=== PATIENT | male | born 1945 | race Caucasian/White ===

== ENCOUNTER 2017-03-10 21:45 | Emergency (ER) | payer MEDICARE ==
[2017-03-10 18:19] LABS: BASOPHILS 0.5 %; BASOPHILS ABSOLUTE 0.06 10/3/uL (0.0-0.16); EOSINOPHILS 3.5 %; EOSINOPHILS ABSOLUTE 0.43 10/3/uL (0.0-0.53); ER CBC TAT 0 Hrs 05 Mins; HEMATOCRIT 43.8 % (40.0-51.0); HEMOGLOBIN 15.1 g/dL (13.6-17.8); IMMATURE GRANULOCYTES 2.2 %; IMMATURE GRANULOCYTES ABSOLUTE 0.27 10/3/uL (0.0-0.11); LYMPHOCYTES 10.4 %; LYMPHOCYTES ABSOLUTE 1.27 10/3/uL (0.67-4.30); MEAN CORPUS HGB CONC 34.5 g/dL (32.0-36.0); MEAN CORPUSCULAR HEMOGLOB 33.7 pg (26.0-34.0); MEAN CORPUSCULAR VOLUME 97.8 fL (80-100); MEAN PLATELET VOLUME 10.2 fL (9.2-13.0); MONOCYTES 9.3 %; MONOCYTES ABSOLUTE 1.13 10/3/uL (0.21-1.20); NEUTROPHILS 74.1 %; NEUTROPHILS ABSOLUTE 9.01 10/3/uL (2.02-8.40); PLATELET COUNT 269 10/3/uL (150-400); RBC DISTRIBUTION WIDTH 12.5 % (12.0-16.0); RED CELL COUNT 4.48 10/6/uL (4.7-6.1); WHITE BLOOD CELLS 12.2 10/3/uL (4.5-10.5)
[2017-03-10 18:20] LABS: MANUAL DIFF NO %
[2017-03-10 18:35] LABS: A/G RATIO 0.7 (0.7-1.9); ALBUMIN 2.7 G/DL (3.5-5.0); ALKALINE PHOSPHATASE 117 U/L (45-117); BUN (BLOOD UREA NITROGEN) 23 MG/DL (6-23); CALCIUM, SERUM 9.1 MG/DL (8.5-10.4); CHLORIDE, SERUM 103 MMOL/L (96-112); CO2 (CARBON DIOXIDE) 30 MMOL/L (24-34); CREATININE 1.04 MG/DL (0.70-1.30); GFR AFRICAN AMERICAN 83 ML/MIN (>=60); GFR NON AFRICAN AMERICAN 72 ML/MIN (>=60); GLOBULIN 4.1 G/DL (2.5-4.1); GLUCOSE, SERUM 109 MG/DL (60-99); POTASSIUM, SERUM 4.1 MMOL/L (3.5-5.3); SGOT(AST) 27 U/L (5-40); SGPT(ALT) 55 U/L (5-65); SODIUM, SERUM 139 MMOL/L (135-148); TOTAL BILIRUBIN 0.3 MG/DL (0-1.2); TOTAL PROTEIN 6.8 G/DL (6.0-8.5)
[2017-03-10 18:43] LABS: BLASTS 1 % (0); EOSINOPHILS 6 %; EOSINOPHILS ABSOLUTE (CALC) 0.73 10/3/uL (0.0-0.53); ER DIFF TAT 0 Hrs 29 Mins; IMMATURE GRANS ABSOLUTE (CALC) 0.12 10/3/uL (0.0-0.11); LYMPHOCYTES 9 %; METAMYELOCYTES 1 %; MONOCYTES 3 %; MONOCYTES ABSOLUTE (CALC) 0.37 10/3/uL (0.21-1.20); NEUTROPHILS ABSOLUTE (CALC) 9.76 10/3/uL (2.02-8.40); SEGMENTED NEUTROPHIL (0) 80 %; TOTAL NUCLEATED CELLS 100
[2017-03-10 18:46] LABS: PLATELET ESTIMATE ADQ (ADEQUATE)
[2017-03-10 18:50] LABS: HELMET CELLS FEW (3-10/OIF); POLYCHROMASIA 1+ (2-5/OIF) (0-1/OIF); TARGET CELLS FEW (3-10/OIF) (0-1/OIF)
[2017-04-24] MEDS ORDERED: ROXICODONE15 MG PO (16:41)
[2017-04-24] MEDS ORDERED: AUG875 PO (16:42)
[2017-04-24] MEDS ORDERED: ZOL100 PO (16:42)
[2017-05-26] MEDS ORDERED: NEUR300 PO (19:54)
[2017-05-26] MEDS ORDERED: DEX4 PO (19:55)
[2017-05-26] MEDS ORDERED: COMP10B PO (19:55)
[2017-05-26] MEDS ORDERED: CHEMOTHERAPY IV (19:56)
[2017-06-10] MEDS ORDERED: CONSTULOSE PO (12:25)
[2017-06-10] MEDS ORDERED: INSNOVR SC (12:29)
[2017-06-26] MEDS ORDERED: REM15 PO (14:43)
[2017-06-26] MEDS ORDERED: POTASSIUM OTC PO (14:45)
[2017-07-16] MEDS ORDERED: LOM PO (03:24)
[2017-07-16] MEDS ORDERED: TRAZ50 PO (03:25)
[2017-07-16] MEDS ORDERED: DURICEF PO (03:25)
[2017-07-16] MEDS ORDERED: KLOR-CON M1010 MEQ PO (03:26)
[2017-07-16] MEDS ORDERED: NEUR300 PO (03:27)
[2017-07-16] MEDS ORDERED: ZOL100 PO (03:27)
[2017-07-16] MEDS ORDERED: PROTONIX PO (03:27)
[2017-07-16] MEDS ORDERED: ATV.5 PO (03:27)
[2017-07-16] MEDS ORDERED: ROXICODONE15 MG PO (03:28)
[2017-07-16] MEDS ORDERED: INSNOVR (03:28)
[2017-07-16] MEDS ORDERED: COMP10B PO (03:28)
[2017-07-20] MEDS ORDERED: VANCOCIN HCL125 MG PO (13:14)
[2017-07-20] MEDS ORDERED: FLAG500TAB PO (13:15)
== END 2017-03-10 22:24 | disposition home or self-care (01) ==
LOC: ER 21:45
PROVIDERS: Emergency Medicine
DX: K94.22 Gastrostomy infection (principal); Z87.891 Personal history of nicotine dependence; Z85.01 Personal history of malignant neoplasm of esophagus
CPT/HCPCS: 80053; 83690; 85025; 87040; 87070; 87077; 87186; 87205; 96374; 99283

== ENCOUNTER 2017-03-24 21:03 | Inpatient (IN) | payer MEDICARE ==
--- NOTE | ~2017-03-24 | IDS ---
Interim Discharge Summary [facility] [address] [place]. [address] NAME: TARI GALLEGO : 47 STATUS : ADM IN [facility]#: [id number] AGE: 72 ADM/REG DATE : 03/24/17 MR#: [id number] REPORT SERV DATE: 04/01/17 DICTATED BY: DANIEL BOWERS II DATE: 04/01/17 REPORT STATUS : Draft TRANSCRIBED BY: MODL DATE: 04/01/17 ADMISSION DATE: 03/24/2017 DISCHARGE DATE: DATE OF INTERIM: 04/01/2017 INTERIM DIAGNOSES: 1. Abdominal wall abscess, status post drain. 2. Esophageal cancer, currently undergoing XRT. 3. Fever. 4. Abdominal pain secondary to above. 5. Urinary retention. Resolved. 6. Acute hypoxic respiratory failure, in the setting of persistent small right pleural effusion and atelectasis. 7. Left upper extremity edema, ultrasound pending. 8. J-tube removal on total parent nutrition. CONSULTS: Dr. Coburn with Surgery. PROCEDURE: CT-guided drainage of abdominal wall abscess, status post bulb drain placement. BRIEF HISTORY OF PRESENT ILLNESS: The patient is a 72-year-old male with the above history who presented to [facility] due to abdominal wall infection, cellulitis, and found to have abdominal abscess. For detailed history and physical examination, please see Dr. So's note from 03/24/2017. HOSPITAL COURSE: On admission, the patient had an elevated procalcitonin of 0.98, and CT abdomen and pelvis showed an extensive fluid and gas enlarging left abdominal wall abscess. The abscess appeared to be around the point where the catheter enters the abdominal wall which was extensive throughout the musculature though no intraperitoneal abscess was noted. The patient was started on vancomycin and Zosyn initially and cultures returned with Serratia marcescens sensitive to Levaquin, so he was switched to IV Levaquin. The patient continues to have drain output and is on TPN since his NG tube had to be removed. Overall, he has been fairly stable and repeat abscessogram on the 03/27/2017 showed persistent abscess though slightly improved. Currently surgery is pending repeat abscessogram reportedly planned tomorrow 523. He otherwise has had an episode of urinary retention and a Crockett catheter was placed due to the penile edema. This has improved and his Crockett was removed and now has had no further retention. He has been hypoxic throughout this hospitalization. Chest x-ray, mainly showing bilateral pleural effusions, though most recent chest x-ray showed resolution of the left and persistent right with atelectasis. A fever was noted yesterday of 101.1. So he was re-cultured. UA was negative. Blood cultures have been negative so far and no new infiltrate was noted on the chest x-ray. He has not had any further fevers though may be still related to abscess. He also was noted to have some left upper extremity edema which started yesterday so we will check UA and ultrasound of left upper extremity. He does have a DVT in the arm, there may be reason to check a CTA given his hypoxia is new and is fusions are fairly minimal, though he is not Interim Discharge Summary [address] [address] NAME: TARI GALLEGO : 46 STATUS : ADM IN [facility]#: [id number] AGE: 72 ADM/REG DATE : 03/24/17 MR#: [id number] REPORT SERV DATE: 04/01/17 DICTATED BY: DANIEL BOWERS II DATE: 04/01/17 REPORT STATUS : Draft TRANSCRIBED BY: MOY DATE: 04/01/17 tachycardic. Regarding disposition, Case Management is working on home health and home TPN as there does not appear to be any indication surgery is going to replace the tube this admission. Family has arranged 24-hour care for the patient. He remains fairly debilitated. Note, Dr. John will take over the patient's care starting tomorrow. KARYN/MOY Daniel Bowers II, MD / [id number] CC: MD PETER Mullins II, ROBERT ADAM
--- NOTE | ~2017-03-24 | DS ---
Discharge Summary [facility] [address] [place]. [address] NAME: TARI GALLEGO : 47 STATUS : DIS IN PAT#: [id number] AGE: 72 ADM/REG DATE : 03/24/17 MR#: [id number] REPORT SERV DATE: 04/08/17 DICTATED BY: LEYLA LIEBERMAN DATE: 04/08/17 REPORT STATUS : Draft TRANSCRIBED BY: MODL DATE: 04/08/17 ADMISSION DATE: 03/24/2017 DISCHARGE DATE: 04/08/2017 DISCHARGE DIAGNOSES: 1. Abdominal wall abscess, status post drain. 2. Abdominal pain due to abdominal wall abscess. 3. Esophageal cancer. 4. Severe protein malnutrition. 5. Hypoxic respiratory failure, resolved. IMAGIN. CT of abdomen and pelvis on 03/25/2017, impression, extensive fluid and gas enlarging the left abdominal wall musculature, may be related to gas-forming infection. Focal pocket of fluid and gas around the point where the catheter enters the abdominal wall. Gas and edema are more extensive throughout the musculature. No intraperitoneal abscess or other acute intraperitoneal finding. 2. CT of soft tissue with catheter insertion on 03/25/2017, impression, under CT guidance, an 8-Djiboutian catheter has been placed into the area of fluid and air collection in the mid abdomen adjacent to a newly removed jejunal feeding tube. 3. Vascular lab catheter injection on 03/26/2017, impression, abscessogram demonstrates drain in good position. Abscess cavity decreased in size. There is no contrast . 4. CT of abdomen and pelvis on 03/27/2017, impression, there is persistent abdominal and soft tissue swelling present. The drain, however, appears to be in good position. 5. Chest x-ray on 03/31/2017, impression, persistent small right pleural effusion and probable segmental atelectasis of the right lung base. Resolution of left pleural effusion compared to recent CT of the abdomen. No acute pulmonary disease. 6. CT on 04/02/2017, impression, existing catheter in good communication with entire abscess over the abdominal wall. No additional catheters were placed. 7. Venous Doppler ultrasound on 04/02/2017, no evidence of deep vein thrombus in the left upper extremity. 8. Abscessogram on 04/05/2017, impression, upsizing abscessogram demonstrate persistent abscess cavity. This was drained until completely decompressed with Betadine and saline until clear. A 12-Djiboutian drain placed. Over 300 mL of purulent material was removed. LABORATORY DATA: Sodium 137, potassium is 4.3, chloride is 104, CO2 is 24, BUN is 23, creatinine 0.56, 145, calcium 8.4, magnesium is 2.0, phosphorus is 3.2. CONSULTATION: Surgery, Dr. Coburn, on 03/24/2017. COURSE OF HOSPITAL STAY: Please refer to history and physical dictated on 03/24/2017 for complete admission details as well as consultation note by Dr. Coburn. This patient is a 72-year-old male, who presented to [facility] Emergency Room with Discharge Summary [address] [address] NAME: TARI GALLEGO : 47 STATUS : DIS IN [facility]#: [id number] AGE: 72 ADM/REG DATE : 03/24/17 MR#: [id number] REPORT SERV DATE: 04/08/17 DICTATED BY: LEYLA LIEBERMAN DATE: 04/08/17 REPORT STATUS : Draft TRANSCRIBED BY: MOY DATE: 04/08/17 abdominal wall infection, cellulitis, and found to have abdominal abscess. Upon admission, the patient was evaluated with procalcitonin of 0.98. CT imaging was obtained, which is noted above, did show extensive fluid and gas enlarging the left abdominal wall abscess. Surgery was consulted to evaluate the patient. The patient was initially started on vancomycin and Zosyn. This was changed to Levaquin. The patient did complete 14 days of antibiotic. The patient continued to have drainage. Upon discharge, the patient will have drain remained in place. A repeat abscessogram will be obtained on 04/10/2017 for re- evaluation. The patient was started on TPN during his hospital stay. This will continue upon discharge. Home Health has been arranged for the patient regarding supplies at home as well as home health and physical therapy as well as drain care. The patient does have a PICC line in place. Care will be provided upon discharge. The patient has been followed by Oncology during his stay. They will be following patient as outpatient. shipping/receiving manager has been involved with patient's care. The patient and family have agreed to the treatment plan. DISCHARGE MEDICATIONS: 1. Thorazine 10 mg one p.o. every 6 hours p.r.n. 2. Oxycodone 5 mg one p.o. every four hours p.r.n. for pain. 3. Oxycodone extended release 15 mg one p.o. every 12 hours. 4. Ativan 0.5 mg one p.o. three times daily. 5. Zofran 8 mg one p.o. every eight hours. 6. Protonix 40 mg one p.o. daily. 7. Flomax 0.4 mg one p.o. daily. 8. Zoloft 50 mg one p.o. daily. TIME SPENT: This discharge took greater than 30 minutes due to collaboration with patient and family as well as reviewing plan of care, home medications, arranging home health, supplies for TPN, physical therapy, and drain care. DICTATED BY: Leyla Lieberman NP [facility]/MODL Leyla Lieberman NP / [id number] CC: Charles Joyner ROBERT ADAM
--- NOTE | ~2017-03-24 | HP ---
History And Physical [address] [place]. [address] NAME: TARI GALLEGO : 47 STATUS : ADM IN [facility]#: [id number] AGE: 72 ADM/REG DATE : 03/24/17 MR#: [id number] REPORT SERV DATE: 03/25/17 DICTATED BY: MATEO BLACKMAN DATE: 03/24/17 REPORT STATUS : Draft TRANSCRIBED BY: MODL DATE: 03/24/17 DATE OF ADMISSION: 03/24/2017 CHIEF COMPLAINT: Abdominal wall infections and cellulitis. Direct admission/transfer from [facility] Emergency Room Department. HISTORY OF PRESENT ILLNESS: Obtained from the patient as well as the patient's family, present at bedside as well as the emergency room notes and reports from [facility] Emergency Room as well as past medical history medical records available to us, which were thoroughly reviewed. 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 The patient was seen and started on chemotherapy by Dr. Barrientos apparently just this past , three days ago. The patient had a PEG tube placement previously and it seems that he has been under treatment with antibiotic for cellulitis and redness around the J tube placement. Today, the patient has been very weak with increasing pain in the abdominal area therefore, he went to the emergency room department at [facility]. There, the patient was investigated, he was noticed to be rather hypotensive, and apparently, the patient has low blood pressure constitutionally that is in baseline and the investigation at the emergency room department revealed by CT scan that there is a large fluid and inflammation and gas throughout the anterolateral left hemiabdomen, surrounded by subcutaneous inflammatory stranding likely representing abdominal wall abscess and phlegmon associated with other malfunction of the percutaneous jejunostomy tube. Also, the above-mentioned CT scan suggested air-fluid level proximal to the distal esophageal mass with opacities in the right middle lobe, right lower lobe suspicious for aspiration. Therefore, the patient was referred to our Hospitalist Service as direct admission for further management of the above-mentioned findings around the jejunostomy tube by Dr. Coburn, surgeon; also per the fact that the oncology group, Dr. Barrientos, sees the patient here. Upon arrival on our hospital, the patient is comfortable, complaining of abdominal pain. He has been using ice chips at home and is still requesting them at these moment. PAST MEDICAL HISTORY: As above prior to the malignancy diagnosed not too long ago. The patient had a history of BPH and GERD. PAST SURGICAL HISTORY: Tonsillectomy, hemorrhoidectomy, and PEG jejunostomy tube replacement. ALLERGIES: NO KNOWN DRUG ALLERGIES. FAMILY HISTORY: Significant for hypertension. SOCIAL HISTORY: Recently moved to [place] to live with his daughter for close care. He used to work in a restaurant business. He has smoked for 48 years, one pack a day, quit two years ago. Denies alcohol abuse. Denies illicit or recreational drug abuse. REVIEW OF SYSTEMS: History And Physical [address] [address] NAME: TARI GALLEGO : 46 STATUS : ADM IN [facility]#: [id number] AGE: 72 ADM/REG DATE : 03/24/17 MR#: [id number] REPORT SERV DATE: 03/25/17 DICTATED BY: MATEO BLACKMAN DATE: 03/24/17 REPORT STATUS : Draft TRANSCRIBED BY: MOY DATE: 03/24/17 As per H and P, otherwise negative in all review of systems. Please note, the comprehensive review of system was obtained and pertinent positives were including in the H and P. The patient denies any fever or chills. Denies significant cough. Denies any diarrhea or any dysuria. ALLERGIES: NO KNOWN DRUG ALLERGIES. HOME MEDICATIONS: According to the list provided, the patient is supposed to take Flomax 0.4 mg p.o. at bedtime, hydrocodone 10/325 one p.o. q.4 hours p.r.n. pain, Ativan 0.5 mg p.o. t.i.d. p.r.n., Thorazine 10 mg p.o. q.6 hours p.r.n., Protonix 40 mg p.o. daily, Zofran 8 mg p.o. q.8 hours p.r.n. The patient has been on antibiotic until recently. He took the Keflex which was discontinued and presently taking Bactrim one tablet p.o. b.i.d. as well as a probiotic [id number]. PHYSICAL EXAMINATION: GENERAL: Pleasant, co-operant, in obvious mild distress due to pain, but overall pale and frail and ill-appearing. VITAL SIGNS: Upon arrival to the emergency room department showed blood pressure 71/57, pulse 89, respiratory rate 19, temperature 97.7, oxygen saturation 92% in room air. Upon arrival on our floor blood pressure 79/50, pulse 96, respiratory rate 18, temperature is 98.1, oxygen saturation 90% in room air up to 96% on 2 L by nasal cannula. HEENT: Pupils are equal, round, and reactive to light. Extraocular movements intact. Throat, mild erythema. No exudate. NECK: Supple. No JVD. No bruits. No thyromegaly. No lymph nodes. LUNGS: Bilateral air entry with bibasilar rales. Good airway movement. HEART: Positive S1, S2. Regular rate and rhythm. Positive soft mitral regurgitation murmur at the apex. No rub. No gallop. ABDOMEN: Positive bowel sounds. Distant with slight distention and diffuse tenderness especially on the left flank and around the insertion of the jejunostomy tube. Jejunostomy tube site with serous ? Purulent drainage. Positive guarding and mild rebound tenderness to palpation. Cellulitic changes around the jejunostomy tube extends to the right lower quadrant and on the left flank. EXTREMITIES: With decreased range of motion. Osteoarthritic changes. No clubbing. No cyanosis. No edema. NEUROLOGIC: Alert and oriented x3. Grossly nonfocal. Cranial nerves 2 through 12 grossly intact. Motor strength 5/5 symmetrical bilateral. Deep tendon reflexes 2/2 symmetrical bilateral. BACK: With decreased range of motion. No focal localized tenderness. No CVA tenderness. SKIN: No bruises. No rashes. No lacerations (besides the above-mentioned changes of the abdominal wall area). SIGNIFICANT LABORATORY DATA: No laboratory data available as the patient is a direct admission from outside hospital facility. EKG (personal reading), copy sent from [facility] showed normal sinus rhythm at 87 beats per minute. No acute ST elevation. White cell count 7.2, hemoglobin 14.9, platelet count 285. Sodium 133, potassium 4.7, chloride 102, bicarb 23, BUN 37, creatinine 1.3, glucose 124. Lactic acid 1.4, which is within normal limits. Calcium 8.5, which is within normal limits. Liver function tests within normal limits History And Physical [address] [place]. [address] NAME: TARI GALLEGO : 47 STATUS : ADM IN [facility]#: [id number] AGE: 72 ADM/REG DATE : 03/24/17 MR#: [id number] REPORT SERV DATE: 03/25/17 DICTATED BY: MATEO BLACKMAN DATE: 03/24/17 REPORT STATUS : Draft TRANSCRIBED BY: MODL DATE: 03/24/17 except albumin of 2.1, which is slightly decreased. INR 1.2 and PTT 27.5. Urinalysis showed trace LE, nitrates negative, trace bacteria, white cells 3 to 5. Blood cultures x2 were done at the [facility]. CT scan of the abdomen and pelvis without contrast by preliminary report from the emergency room showed "large fluid and inflammation and gas throughout the anterolateral left hemiabdomen surrounded by subcutaneous inflammatory stranding likely representing abdominal wall abscess/phlegmon associated with enterocutaneous fistula or other malfunction of the percutaneous a jejunostomy tube, known esophageal carcinoma, gastroesophageal junction, air-fluid level proximal to the distal esophageal mass, segmental opacity of right middle lobe or right lower lobe suspicious for aspiration." ASSESSMENT AND PLAN AND PROBLEM LIST: The patient is a pleasant 72-year-old man admitted as a direct admission/transfer for surgical consultation due to possible abdominal wall cellulitis, abscess, phlegmon, and immunocompromised status. IMPRESSION: 1. ID problem. a. Abdominal wall abscess, cellulitis, possible phlegmon with malfunction of the PEG tube. b. Aspiration pneumonitis (bilobar). c. Immunocompromised status. For all the above, patient has been started on IV vancomycin, IV Zosyn. We are going to repeat the blood cultures if any fever or distress develops. Obtain General Surgical consult, Dr. Coburn as requested. Strict n.p.o. status. Oxygen supplementation, bronchodilator therapy as needed. 2. Hypotension reportedly "constitutional." We are going to continue to monitor. Give adequate IV hydration and IV boluses as indicated. Low threshold for hemodynamic support if needed only the only for blood pressure management. 3. Benign prostatic hyperplasia by history. We are going to keep Flomax on hold for now. 4. Gastroesophageal reflux disease. We are going to use Protonix IV. 5. Hyperglycemia likely reactive. Continue to monitor. 6. 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 PROGNOSIS: Remain guarded for this moment. Discussed with the patient and the patient's family present at bedside. Questions were answered in full. Please note, the patient is a do not resuscitate at this moment as discussed with the patient and family. Please note, the patient does not have an established primary care provider at this moment/primary care. RF/MOY Mateo Blackman M.D. / [id number] History And Physical [address] [address] NAME: TARI GALLEGO : 47 STATUS : ADM IN [facility]#: [id number] AGE: 72 ADM/REG DATE : 03/24/17 MR#: [id number] REPORT SERV DATE: 03/25/17 DICTATED BY: MATEO BLACKMAN ION DATE: 03/24/17 REPORT STATUS : Draft TRANSCRIBED BY: MOY DATE: 03/24/17 CC: Charles Joyner M.D. Richard Hunter Jennings III, M.D. Jonathan T Whaley, MD
--- NOTE | ~2017-03-24 | CN ---
Consultation Report [id number] [facility] [place]. [address] NAME: TARI GALLEGO : 47 STATUS : ADM IN [facility]#: [id number] AGE: 72 ADM/REG DATE : 03/24/17 MR#: [id number] REPORT SERV DATE: 03/25/17 DICTATED BY: DK MCCAULEY III DATE: 03/25/17 REPORT STATUS : Draft TRANSCRIBED BY: MODL DATE: 03/25/17 CONSULTATION DATE OF CONSULTATION: 03/25/2017 REASON FOR CONSULT: 1. Infection of abdominal wall. 2. Malfunctioning jejunostomy feeding tube. HISTORY OF PRESENT ILLNESS: I am asked to see this 72-year-old male, emergently hospitalized for above reasons. The patient is recently diagnosed with distal esophageal cancer. The patient has severe dysphagia with near complete esophageal obstruction. The patient was initially evaluated in [place], [place]. He underwent placement of jejunal feeding tube. He has begun chemotherapy, which was started last week. The patient has had problems with the jejunal feeding tube for the last week or so. He has had intermittent amounts of bilious drainage around the tube. The tube has been replaced with larger tube on at least two occasions at [facility]. He continued to have drainage and then yesterday developed pain and severe erythema of the abdominal wall. He was seen in the emergency room on the night of admission at [facility] Emergency Room and then transferred here. The patient complains of anterior abdominal wall pain. He states that he feels ill. He has become progressively weak and developed progressive abdominal pain. There is noted be a large amount of copious bilious drainage around the tube. PAST MEDICAL HISTORY: Recently diagnosed esophageal cancer. The stage is unclear but apparently this was esophageal cancer with paraesophageal adenopathy. ALLERGIES: NONE. SOCIAL HISTORY: The patient has history of tobacco abuse. No history of alcohol use. FAMILY HISTORY: Positive for hypertension. REVIEW OF SYSTEMS: The patient's 14-point review of systems is otherwise unremarkable. MEDICATIONS: At home include Flomax, hydrocodone, Ativan, Thorazine, Protonix, Zofran, and Keflex. PHYSICAL EXAMINATION: GENERAL: A large, obese male, who appears uncomfortable. He is alert and oriented x3. Appears ill. Consultation Report [place] [id number] [facility] [place]. [address] NAME: TARI GALLEGO : 47 STATUS : ADM IN [facility]#: [id number] AGE: 72 ADM/REG DATE : 03/24/17 MR#: [id number] REPORT SERV DATE: 03/25/17 DICTATED BY: DK MCCAULEY III DATE: 03/25/17 REPORT STATUS : Draft TRANSCRIBED BY: MODJamil DATE: 03/25/17 VITAL SIGNS: Blood pressure 99/55, temperature 98.1, and pulse 83. It should be noted the patient is chronically hypotensive. His blood pressure when he was here electively for radiographic evaluation was 95/52 on 03/10/2017. HEENT: Unremarkable. NEUROLOGIC: Cranial nerves 2 through 12 are normal. LUNGS: Clear. CARDIAC: Normal. ABDOMEN: Slightly distended. He has a jejunal feeding tube along the left lateral abdominal wall. There was a large amount of bilious drainage from this. SKIN: The skin around the exit site is very erythematous and tender. There is no fluctuance noted. EXTREMITIES: Normal. LABORATORY DATA: CT scan of the abdomen and pelvis, which I reviewed shows a large fluid collection in the left anterior abdominal wall centered around the exit from the abdominal wall. This appeared to be consistent with subcutaneous abscess or fluid collection. There is no intraabdominal component to the fluid collection. No evidence for intraabdominal abscess. The feeding tube is in correct position in the jejunum. The patient's white blood cell count 5.4, hematocrit 43, BUN is 40. ASSESSMENT: A 72-year-old male with: 1. Severe cellulitis and probable abscess of anterior abdominal wall. This was related to leakage around his jejunal feeding tube. 2. Distal esophageal cancer. The patient currently undergoing chemotherapy. 3. Obesity. 4. Hypertension. PLAN: The feeding tube has been replaced on several occasions with a larger tube. I would recommend that this be removed to allow for adequate drainage of the area. I have also requested CT-directed drainage of the anterior abdominal wall fluid collection. The patient has been started on appropriate antibiotics. We will arrange for this to be done today. If it is not successful, then surgical drainage of the anterior abdominal wall fluid collection may be required in the operating room. At this time, the patient is hemodynamically stable, and I believe the CT-directed drainage would be appropriate way to proceed at this time, having surgical drainage for failure to respond to this intervention. This plan has been explained to the patient and his daughter. Their questions have been answered. They understand and agree to this as planned. ASHLEY/MOY Dk Mccauley III, M.D. Consultation Report [address] [address] NAME: TARI GALLEGO : 47 STATUS : ADM IN PAT#: [id number] AGE: 72 ADM/REG DATE : 03/24/17 MR#: [id number] REPORT SERV DATE: 03/25/17 DICTATED BY: DK MCCAULEY III DATE: 03/25/17 REPORT STATUS : Draft TRANSCRIBED BY: MOY DATE: 03/25/17 / [id number] CC: Reuben John M.D.
[2017-03-24] MEDS ORDERED: FLOMAX4 PO (22:30)
[2017-03-24] MEDS ORDERED: ATV.5 PO (22:31)
[2017-03-24] MEDS ORDERED: NORCO1 TAB PO (22:31)
[2017-03-24] MEDS ORDERED: CPZ10 PO (22:32)
[2017-03-24] MEDS ORDERED: PROTONIX PO (22:32)
[2017-03-24] MEDS ORDERED: ZOFRAN8 PO (22:33)
[2017-03-24 23:51] LABS: BASOPHILS 0.2 %; BASOPHILS ABSOLUTE 0.01 10/3/uL (0.0-0.16); EOSINOPHILS 2.6 %; EOSINOPHILS ABSOLUTE 0.14 10/3/uL (0.0-0.53); HEMOGLOBIN 14.8 g/dL (13.6-17.8); IMMATURE GRANULOCYTES 0.6 %; IMMATURE GRANULOCYTES ABSOLUTE 0.03 10/3/uL (0.0-0.11); LYMPHOCYTES 9.4 %; LYMPHOCYTES ABSOLUTE 0.51 10/3/uL (0.67-4.30); MEAN CORPUS HGB CONC 34.4 g/dL (32.0-36.0); MEAN CORPUSCULAR HEMOGLOB 33.4 pg (26.0-34.0); MEAN CORPUSCULAR VOLUME 97.1 fL (80-100); MEAN PLATELET VOLUME 10.1 fL (9.2-13.0); MONOCYTES 4.3 %; MONOCYTES ABSOLUTE 0.23 10/3/uL (0.21-1.20); NEUTROPHILS 82.9 %; NEUTROPHILS ABSOLUTE 4.48 10/3/uL (2.02-8.40); PLATELET COUNT 288 10/3/uL (150-400); RBC DISTRIBUTION WIDTH 12.6 % (12.0-16.0); RED CELL COUNT 4.43 10/6/uL (4.7-6.1)
[2017-03-24 23:55] LABS: MANUAL DIFF NO %; WHITE BLOOD CELLS 5.4 10/3/uL (4.5-10.5)
[2017-03-25 00:13] LABS: INTERNATIONAL NORMAL RATI 1.3 UNITS (-); PROTIME (NOT ORD) 15.6 SEC (12.0-14.5)
[2017-03-25 01:04] LABS: ASCORBIC ACID (UR NOT ORDER) 20 (NEG); BILIRUBIN, URINE NEGATIVE (NEG); KETONE, URINE NEGATIVE (NEG); LEUKOCYTE ESTERASE(NOT OR NEG (NEG); WBC (NOT ORDERED) (RFLEX) 2 (0-5)
[2017-03-25 04:56] LABS: BUN (BLOOD UREA NITROGEN) 40 MG/DL (6-23); CHLORIDE, SERUM 107 MMOL/L (96-112); CO2 (CARBON DIOXIDE) 25 MMOL/L (24-34); CREATININE 1.27 MG/DL (0.70-1.30); GFR AFRICAN AMERICAN 65 ML/MIN (>=60); GFR NON AFRICAN AMERICAN 56 ML/MIN (>=60); GLUCOSE, SERUM 106 MG/DL (60-99); PHOSPHORUS, SERUM 3.5 MG/DL (2.5-4.5); POTASSIUM, SERUM 5.4 MMOL/L (3.5-5.3); SGPT(ALT) 28 U/L (5-65); SODIUM, SERUM 137 MMOL/L (135-148)
[2017-03-25 04:57] LABS: A/G RATIO 0.5 (0.7-1.9); ALBUMIN 1.7 G/DL (3.5-5.0); ALKALINE PHOSPHATASE 77 U/L (45-117); GLOBULIN 3.3 G/DL (2.5-4.1); SGOT(AST) 24 U/L (5-40); TOTAL BILIRUBIN 0.9 MG/DL (0-1.2)
[2017-03-26 06:56] LABS: BASOPHILS 0 %; EOSINOPHILS 4.8 %; IMMATURE GRANULOCYTES 0.7 %; IMMATURE GRANULOCYTES ABSOLUTE 0.03 10/3/uL (0.0-0.11); LYMPHOCYTES 9.3 %; LYMPHOCYTES ABSOLUTE 0.39 10/3/uL (0.67-4.30); MEAN CORPUS HGB CONC 34.2 g/dL (32.0-36.0); MEAN CORPUSCULAR HEMOGLOB 33.3 pg (26.0-34.0); MEAN CORPUSCULAR VOLUME 97.4 fL (80-100); MONOCYTES ABSOLUTE 0.25 10/3/uL (0.21-1.20); NEUTROPHILS 79.2 %; NEUTROPHILS ABSOLUTE 3.33 10/3/uL (2.02-8.40); PLATELET COUNT 278 10/3/uL (150-400); RBC DISTRIBUTION WIDTH 12.6 % (12.0-16.0); WHITE BLOOD CELLS 4.2 10/3/uL (4.5-10.5)
[2017-03-26 07:02] LABS: HEMATOCRIT 29.5 % (40.0-51.0); HEMOGLOBIN 10.1 g/dL (13.6-17.8); MANUAL DIFF NO %; RED CELL COUNT 3.03 10/6/uL (4.7-6.1)
[2017-03-26 07:19] LABS: CHLORIDE, SERUM 108 MMOL/L (96-112); CO2 (CARBON DIOXIDE) 25 MMOL/L (24-34); DIRECT BILIRUBIN 0.6 MG/DL (0.0-0.4); INDIRECT BILIRUBIN(NOT ORDER) 0.5 MG/DL (0.1-0.9); SGOT(AST) 15 U/L (5-40); SGPT(ALT) 17 U/L (5-65); SODIUM, SERUM 140 MMOL/L (135-148); TOTAL BILIRUBIN 1.1 MG/DL (0-1.2); TOTAL PROTEIN 5.9 G/DL (6.0-8.5)
[2017-03-26 07:20] LABS: ALKALINE PHOSPHATASE 56 U/L (45-117); BUN (BLOOD UREA NITROGEN) 21 MG/DL (6-23); CALCIUM, SERUM 9.3 MG/DL (8.5-10.4); CREATININE 0.72 MG/DL (0.70-1.30); GFR AFRICAN AMERICAN 109 ML/MIN (>=60); GFR NON AFRICAN AMERICAN 94 ML/MIN (>=60); GLUCOSE, SERUM 81 MG/DL (60-99); PHOSPHORUS, SERUM 1.8 MG/DL (2.5-4.5); POTASSIUM, SERUM 4.1 MMOL/L (3.5-5.3)
[2017-03-26 12:20] LABS: PREALBUMIN 7.4 MG/DL (17.0-43.0); TRIGLYCERIDE 141 MG/DL (< 150)
[2017-03-26 12:21] LABS: A/G RATIO 1.4 (0.7-1.9); ALBUMIN 3.4 G/DL (3.5-5.0); GLOBULIN 2.5 G/DL (2.5-4.1)
[2017-03-27 06:32] LABS: HEMATOCRIT 30.5 % (40.0-51.0); HEMOGLOBIN 10.5 g/dL (13.6-17.8); MEAN CORPUS HGB CONC 34.4 g/dL (32.0-36.0); MEAN CORPUSCULAR HEMOGLOB 33.4 pg (26.0-34.0); MEAN CORPUSCULAR VOLUME 97.1 fL (80-100); MEAN PLATELET VOLUME 9.6 fL (9.2-13.0); PLATELET COUNT 301 10/3/uL (150-400); RBC DISTRIBUTION WIDTH 13.1 % (12.0-16.0); RED CELL COUNT 3.14 10/6/uL (4.7-6.1)
[2017-03-27 06:35] LABS: MANUAL DIFF YES %; WHITE BLOOD CELLS 6.3 10/3/uL (4.5-10.5)
[2017-03-27 06:50] LABS: BUN (BLOOD UREA NITROGEN) 20 MG/DL (6-23); CALCIUM, SERUM 9.3 MG/DL (8.5-10.4); CHLORIDE, SERUM 109 MMOL/L (96-112); CO2 (CARBON DIOXIDE) 26 MMOL/L (24-34); CREATININE 0.63 MG/DL (0.70-1.30); GFR AFRICAN AMERICAN 115 ML/MIN (>=60); GFR NON AFRICAN AMERICAN 99 ML/MIN (>=60); GLUCOSE, SERUM 110 MG/DL (60-99); PHOSPHORUS, SERUM 2.2 MG/DL (2.5-4.5); POTASSIUM, SERUM 3.7 MMOL/L (3.5-5.3); PREALBUMIN 5.6 MG/DL (17.0-43.0); SODIUM, SERUM 140 MMOL/L (135-148); TRIGLYCERIDE 173 MG/DL (< 150)
[2017-03-27 08:04] LABS: BAND NEUTROPHILS 23 %; EOSINOPHILS 2 %; EOSINOPHILS ABSOLUTE (CALC) 0.13 10/3/uL (0.0-0.53); LYMPHOCYTES 8 %; MONOCYTES 9 %; MONOCYTES ABSOLUTE (CALC) 0.57 10/3/uL (0.21-1.20); PLATELET ESTIMATE ADQ (ADEQUATE); SEGMENTED NEUTROPHIL (0) 58 %; TOTAL NUCLEATED CELLS 100
[2017-03-27 08:05] LABS: RBC MORPHOLOGY NORM (NORMAL)
[2017-03-28 04:50] LABS: HEMATOCRIT 34.1 % (40.0-51.0); HEMOGLOBIN 11.2 g/dL (13.6-17.8); MEAN CORPUS HGB CONC 32.8 g/dL (32.0-36.0); MEAN CORPUSCULAR HEMOGLOB 32.5 pg (26.0-34.0); MEAN CORPUSCULAR VOLUME 98.8 fL (80-100); MEAN PLATELET VOLUME 9.4 fL (9.2-13.0); PLATELET COUNT 297 10/3/uL (150-400); RED CELL COUNT 3.45 10/6/uL (4.7-6.1); WHITE BLOOD CELLS 7.7 10/3/uL (4.5-10.5)
[2017-03-28 04:51] LABS: MANUAL DIFF YES %
[2017-03-28 05:06] LABS: BUN (BLOOD UREA NITROGEN) 22 MG/DL (6-23); CALCIUM, SERUM 8.6 MG/DL (8.5-10.4); CHLORIDE, SERUM 107 MMOL/L (96-112); CO2 (CARBON DIOXIDE) 28 MMOL/L (24-34); CREATININE 0.68 MG/DL (0.70-1.30); GFR AFRICAN AMERICAN 111 ML/MIN (>=60); GFR NON AFRICAN AMERICAN 96 ML/MIN (>=60); PHOSPHORUS, SERUM 2.4 MG/DL (2.5-4.5); SODIUM, SERUM 140 MMOL/L (135-148)
[2017-03-28 05:07] LABS: GLUCOSE, SERUM 137 MG/DL (60-99)
[2017-03-28 07:04] LABS: BAND NEUTROPHILS 24 %; EOSINOPHILS 1 %; EOSINOPHILS ABSOLUTE (CALC) 0.08 10/3/uL (0.0-0.53); IMMATURE GRANS ABSOLUTE (CALC) 0.08 10/3/uL (0.0-0.11); LYMPHOCYTES 6 %; LYMPHOCYTES ABSOLUTE (CALC) 0.46 10/3/uL (0.67-4.30); METAMYELOCYTES 1 %; MONOCYTES 7 %; MONOCYTES ABSOLUTE (CALC) 0.54 10/3/uL (0.21-1.20); NEUTROPHILS ABSOLUTE (CALC) 6.55 10/3/uL (2.02-8.40); SEGMENTED NEUTROPHIL (0) 61 %; TOTAL NUCLEATED CELLS 100
[2017-03-28 07:05] LABS: PLATELET ESTIMATE ADQ (ADEQUATE); RBC MORPHOLOGY NORM (NORMAL); TOXIC GRANULATION 1+
[2017-03-29 05:24] LABS: HEMATOCRIT 32.5 % (40.0-51.0); HEMOGLOBIN 11.1 g/dL (13.6-17.8); MEAN CORPUS HGB CONC 34.2 g/dL (32.0-36.0); MEAN CORPUSCULAR HEMOGLOB 33.7 pg (26.0-34.0); MEAN CORPUSCULAR VOLUME 98.8 fL (80-100); MEAN PLATELET VOLUME 9.3 fL (9.2-13.0); PLATELET COUNT 294 10/3/uL (150-400); RED CELL COUNT 3.29 10/6/uL (4.7-6.1); WHITE BLOOD CELLS 7.5 10/3/uL (4.5-10.5)
[2017-03-29 05:27] LABS: MANUAL DIFF YES %
[2017-03-29 05:34] LABS: BUN (BLOOD UREA NITROGEN) 21 MG/DL (6-23); CALCIUM, SERUM 8.6 MG/DL (8.5-10.4); CHLORIDE, SERUM 105 MMOL/L (96-112); CO2 (CARBON DIOXIDE) 28 MMOL/L (24-34); CREATININE 0.69 MG/DL (0.70-1.30); GFR AFRICAN AMERICAN 111 ML/MIN (>=60); GFR NON AFRICAN AMERICAN 96 ML/MIN (>=60); GLUCOSE, SERUM 129 MG/DL (60-99); PHOSPHORUS, SERUM 2.4 MG/DL (2.5-4.5); POTASSIUM, SERUM 3.8 MMOL/L (3.5-5.3); SODIUM, SERUM 140 MMOL/L (135-148)
[2017-03-29 05:51] LABS: BAND NEUTROPHILS 12 %; EOSINOPHILS 2 %; EOSINOPHILS ABSOLUTE (CALC) 0.15 10/3/uL (0.0-0.53); IMMATURE GRANS ABSOLUTE (CALC) 0.53 10/3/uL (0.0-0.11); LYMPHOCYTES 2 %; LYMPHOCYTES ABSOLUTE (CALC) 0.15 10/3/uL (0.67-4.30); METAMYELOCYTES 7 %; MONOCYTES 6 %; MONOCYTES ABSOLUTE (CALC) 0.45 10/3/uL (0.21-1.20); NEUTROPHILS ABSOLUTE (CALC) 6.23 10/3/uL (2.02-8.40); PLATELET ESTIMATE ADQ (ADEQUATE); RBC MORPHOLOGY NORM (NORMAL); SEGMENTED NEUTROPHIL (0) 71 %; TOTAL NUCLEATED CELLS 100
[2017-03-30 06:03] LABS: HEMATOCRIT 31.9 % (40.0-51.0); HEMOGLOBIN 10.8 g/dL (13.6-17.8); MEAN CORPUS HGB CONC 33.9 g/dL (32.0-36.0); MEAN CORPUSCULAR VOLUME 97.6 fL (80-100); MEAN PLATELET VOLUME 9.5 fL (9.2-13.0); PLATELET COUNT 278 10/3/uL (150-400); RBC DISTRIBUTION WIDTH 13.2 % (12.0-16.0); RED CELL COUNT 3.27 10/6/uL (4.7-6.1); WHITE BLOOD CELLS 6.3 10/3/uL (4.5-10.5)
[2017-03-30 06:04] LABS: MANUAL DIFF YES %
[2017-03-30 06:13] LABS: BUN (BLOOD UREA NITROGEN) 20 MG/DL (6-23); CALCIUM, SERUM 8.4 MG/DL (8.5-10.4); CHLORIDE, SERUM 108 MMOL/L (96-112); CO2 (CARBON DIOXIDE) 29 MMOL/L (24-34); CREATININE 0.61 MG/DL (0.70-1.30); GFR AFRICAN AMERICAN 116 ML/MIN (>=60); GFR NON AFRICAN AMERICAN 100 ML/MIN (>=60); GLUCOSE, SERUM 142 MG/DL (60-99); PHOSPHORUS, SERUM 3.1 MG/DL (2.5-4.5); SODIUM, SERUM 142 MMOL/L (135-148); TRIGLYCERIDE 130 MG/DL (< 150)
[2017-03-30 06:28] LABS: PREALBUMIN 5.5 MG/DL (17.0-43.0)
[2017-03-30 06:29] LABS: BAND NEUTROPHILS 14 %; EOSINOPHILS 1 %; EOSINOPHILS ABSOLUTE (CALC) 0.06 10/3/uL (0.0-0.53); IMMATURE GRANS ABSOLUTE (CALC) 0.19 10/3/uL (0.0-0.11); LYMPHOCYTES 3 %; LYMPHOCYTES ABSOLUTE (CALC) 0.19 10/3/uL (0.67-4.30); METAMYELOCYTES 3 %; MONOCYTES 14 %; MONOCYTES ABSOLUTE (CALC) 0.88 10/3/uL (0.21-1.20); NEUTROPHILS ABSOLUTE (CALC) 4.98 10/3/uL (2.02-8.40); PLATELET ESTIMATE ADQ (ADEQUATE); RBC MORPHOLOGY NORM (NORMAL); SEGMENTED NEUTROPHIL (0) 65 %; TOTAL NUCLEATED CELLS 100
[2017-03-31 06:24] LABS: HEMATOCRIT 32.7 % (40.0-51.0); HEMOGLOBIN 10.9 g/dL (13.6-17.8); MEAN CORPUS HGB CONC 33.3 g/dL (32.0-36.0); MEAN CORPUSCULAR HEMOGLOB 32.6 pg (26.0-34.0); MEAN CORPUSCULAR VOLUME 97.9 fL (80-100); MEAN PLATELET VOLUME 9.5 fL (9.2-13.0); PLATELET COUNT 282 10/3/uL (150-400); RBC DISTRIBUTION WIDTH 13.4 % (12.0-16.0); RED CELL COUNT 3.34 10/6/uL (4.7-6.1); WHITE BLOOD CELLS 6.9 10/3/uL (4.5-10.5)
[2017-03-31 06:25] LABS: MANUAL DIFF YES %
[2017-03-31 06:30] LABS: BUN (BLOOD UREA NITROGEN) 22 MG/DL (6-23); CALCIUM, SERUM 8.7 MG/DL (8.5-10.4); CHLORIDE, SERUM 107 MMOL/L (96-112); CO2 (CARBON DIOXIDE) 26 MMOL/L (24-34); CREATININE 0.59 MG/DL (0.70-1.30); GFR AFRICAN AMERICAN 118 ML/MIN (>=60); GFR NON AFRICAN AMERICAN 102 ML/MIN (>=60); GLUCOSE, SERUM 126 MG/DL (60-99); PHOSPHORUS, SERUM 2.8 MG/DL (2.5-4.5); POTASSIUM, SERUM 4.1 MMOL/L (3.5-5.3); SODIUM, SERUM 142 MMOL/L (135-148)
[2017-03-31 07:23] LABS: BAND NEUTROPHILS 24 %; IMMATURE GRANS ABSOLUTE (CALC) 0.14 10/3/uL (0.0-0.11); LYMPHOCYTES 7 %; LYMPHOCYTES ABSOLUTE (CALC) 0.48 10/3/uL (0.67-4.30); METAMYELOCYTES 2 %; MONOCYTES 10 %; MONOCYTES ABSOLUTE (CALC) 0.69 10/3/uL (0.21-1.20); NEUTROPHILS ABSOLUTE (CALC) 5.59 10/3/uL (2.02-8.40); PLATELET ESTIMATE ADQ (ADEQUATE); SEGMENTED NEUTROPHIL (0) 57 %; TOTAL NUCLEATED CELLS 100; TOXIC GRANULATION 1+; VACUOLATED NEUTROPHILES OCC
[2017-03-31 07:24] LABS: MACROCYTES 1+ (5-10/OIF) (0-5/OIF); POLYCHROMASIA 1+ (2-5/OIF) (0-1/OIF); TEARDROP SHAPED RBCS OCC (0-2/OIF)
[2017-03-31 12:50] LABS: ASCORBIC ACID (UR NOT ORDER) NEG (NEG); BILIRUBIN, URINE NEGATIVE (NEG); KETONE, URINE NEGATIVE (NEG); LEUKOCYTE ESTERASE(NOT OR NEG (NEG); WBC (NOT ORDERED) (RFLEX) 3 (0-5)
[2017-04-01 05:17] LABS: HEMATOCRIT 32.3 % (40.0-51.0); HEMOGLOBIN 10.8 g/dL (13.6-17.8); MANUAL DIFF YES %; MEAN CORPUS HGB CONC 33.4 g/dL (32.0-36.0); MEAN CORPUSCULAR VOLUME 98.8 fL (80-100); MEAN PLATELET VOLUME 9.8 fL (9.2-13.0); PLATELET COUNT 270 10/3/uL (150-400); RBC DISTRIBUTION WIDTH 13.3 % (12.0-16.0); RED CELL COUNT 3.27 10/6/uL (4.7-6.1); WHITE BLOOD CELLS 6.1 10/3/uL (4.5-10.5)
[2017-04-01 05:33] LABS: BUN (BLOOD UREA NITROGEN) 22 MG/DL (6-23); CALCIUM, SERUM 8.3 MG/DL (8.5-10.4); CHLORIDE, SERUM 115 MMOL/L (96-112); CO2 (CARBON DIOXIDE) 28 MMOL/L (24-34); CREATININE 0.55 MG/DL (0.70-1.30); GFR AFRICAN AMERICAN 122 ML/MIN (>=60); GFR NON AFRICAN AMERICAN 105 ML/MIN (>=60); GLUCOSE, SERUM 133 MG/DL (60-99); PHOSPHORUS, SERUM 2.3 MG/DL (2.5-4.5); POTASSIUM, SERUM 3.8 MMOL/L (3.5-5.3)
[2017-04-01 05:36] LABS: SODIUM, SERUM 134 MMOL/L (135-148)
[2017-04-01 05:46] LABS: BAND NEUTROPHILS 18 %; BASOPHILS 2 %; BASOPHILS ABSOLUTE (CALC) 0.12 10/3/uL (0.0-0.16); EOSINOPHILS 2 %; EOSINOPHILS ABSOLUTE (CALC) 0.12 10/3/uL (0.0-0.53); IMMATURE GRANS ABSOLUTE (CALC) 0.12 10/3/uL (0.0-0.11); LYMPHOCYTES 9 %; LYMPHOCYTES ABSOLUTE (CALC) 0.55 10/3/uL (0.67-4.30); METAMYELOCYTES 2 %; MONOCYTES 9 %; MONOCYTES ABSOLUTE (CALC) 0.55 10/3/uL (0.21-1.20); NEUTROPHILS ABSOLUTE (CALC) 4.64 10/3/uL (2.02-8.40); PLATELET ESTIMATE ADQ (ADEQUATE); RBC MORPHOLOGY NORM (NORMAL); SEGMENTED NEUTROPHIL (0) 58 %; TOTAL NUCLEATED CELLS 100
[2017-04-02 04:36] LABS: HEMATOCRIT 31.3 % (40.0-51.0); HEMOGLOBIN 10.6 g/dL (13.6-17.8); MANUAL DIFF YES %; MEAN CORPUS HGB CONC 33.9 g/dL (32.0-36.0); MEAN CORPUSCULAR HEMOGLOB 33.3 pg (26.0-34.0); MEAN CORPUSCULAR VOLUME 98.4 fL (80-100); MEAN PLATELET VOLUME 9.9 fL (9.2-13.0); PLATELET COUNT 284 10/3/uL (150-400); RBC DISTRIBUTION WIDTH 13.2 % (12.0-16.0); RED CELL COUNT 3.18 10/6/uL (4.7-6.1); WHITE BLOOD CELLS 5.9 10/3/uL (4.5-10.5)
[2017-04-02 04:53] LABS: BUN (BLOOD UREA NITROGEN) 24 MG/DL (6-23); CALCIUM, SERUM 8.1 MG/DL (8.5-10.4); CHLORIDE, SERUM 107 MMOL/L (96-112); CO2 (CARBON DIOXIDE) 29 MMOL/L (24-34); CREATININE 0.63 MG/DL (0.70-1.30); GFR AFRICAN AMERICAN 115 ML/MIN (>=60); GFR NON AFRICAN AMERICAN 99 ML/MIN (>=60); GLUCOSE, SERUM 131 MG/DL (60-99); PHOSPHORUS, SERUM 2.7 MG/DL (2.5-4.5); POTASSIUM, SERUM 4.3 MMOL/L (3.5-5.3); SGOT(AST) 28 U/L (5-40); SGPT(ALT) 30 U/L (5-65); SODIUM, SERUM 139 MMOL/L (135-148); TOTAL PROTEIN 5.4 G/DL (6.0-8.5)
[2017-04-02 04:54] LABS: A/G RATIO 0.6 (0.7-1.9); ALKALINE PHOSPHATASE 230 U/L (45-117); GLOBULIN 3.4 G/DL (2.5-4.1)
[2017-04-02 05:48] LABS: BAND NEUTROPHILS 10 %; EOSINOPHILS 2 %; EOSINOPHILS ABSOLUTE (CALC) 0.12 10/3/uL (0.0-0.53); LYMPHOCYTES 10 %; LYMPHOCYTES ABSOLUTE (CALC) 0.59 10/3/uL (0.67-4.30); MONOCYTES 5 %; PLATELET ESTIMATE ADQ (ADEQUATE); SEGMENTED NEUTROPHIL (0) 73 %; TOTAL NUCLEATED CELLS 100
[2017-04-02 05:49] LABS: RBC MORPHOLOGY NORM (NORMAL)
[2017-04-03 05:35] LABS: HEMATOCRIT 31.8 % (40.0-51.0); HEMOGLOBIN 10.5 g/dL (13.6-17.8); MANUAL DIFF YES %; MEAN CORPUSCULAR HEMOGLOB 32.6 pg (26.0-34.0); MEAN CORPUSCULAR VOLUME 98.8 fL (80-100); MEAN PLATELET VOLUME 9.7 fL (9.2-13.0); PLATELET COUNT 280 10/3/uL (150-400); RBC DISTRIBUTION WIDTH 13.1 % (12.0-16.0); RED CELL COUNT 3.22 10/6/uL (4.7-6.1); WHITE BLOOD CELLS 5.4 10/3/uL (4.5-10.5)
[2017-04-03 05:46] LABS: BUN (BLOOD UREA NITROGEN) 23 MG/DL (6-23); CALCIUM, SERUM 8.3 MG/DL (8.5-10.4); CHLORIDE, SERUM 104 MMOL/L (96-112); CREATININE 0.94 MG/DL (0.70-1.30); GFR AFRICAN AMERICAN 94 ML/MIN (>=60); GFR NON AFRICAN AMERICAN 81 ML/MIN (>=60); GLUCOSE, SERUM 144 MG/DL (60-99); PHOSPHORUS, SERUM 2.3 MG/DL (2.5-4.5); POTASSIUM, SERUM 4.4 MMOL/L (3.5-5.3); SODIUM, SERUM 136 MMOL/L (135-148)
[2017-04-03 05:47] LABS: BAND NEUTROPHILS 13 %; EOSINOPHILS 1 %; EOSINOPHILS ABSOLUTE (CALC) 0.05 10/3/uL (0.0-0.53); LYMPHOCYTES 7 %; LYMPHOCYTES ABSOLUTE (CALC) 0.38 10/3/uL (0.67-4.30); MONOCYTES 2 %; MONOCYTES ABSOLUTE (CALC) 0.11 10/3/uL (0.21-1.20); NEUTROPHILS ABSOLUTE (CALC) 4.86 10/3/uL (2.02-8.40); SEGMENTED NEUTROPHIL (0) 77 %; TOTAL NUCLEATED CELLS 100
[2017-04-03 05:48] LABS: PLATELET ESTIMATE ADQ (ADEQUATE); RBC MORPHOLOGY NORM (NORMAL)
[2017-04-03 05:50] LABS: CO2 (CARBON DIOXIDE) 24 MMOL/L (24-34)
[2017-04-04 06:01] LABS: HEMATOCRIT 30.6 % (40.0-51.0); HEMOGLOBIN 10.2 g/dL (13.6-17.8); MEAN CORPUS HGB CONC 33.3 g/dL (32.0-36.0); MEAN CORPUSCULAR HEMOGLOB 32.9 pg (26.0-34.0); MEAN CORPUSCULAR VOLUME 98.7 fL (80-100); PLATELET COUNT 290 10/3/uL (150-400); RBC DISTRIBUTION WIDTH 13.3 % (12.0-16.0); WHITE BLOOD CELLS 4.7 10/3/uL (4.5-10.5)
[2017-04-04 06:03] LABS: ALBUMIN 1.8 G/DL (3.5-5.0); ALKALINE PHOSPHATASE 221 U/L (45-117); BUN (BLOOD UREA NITROGEN) 25 MG/DL (6-23); CHLORIDE, SERUM 107 MMOL/L (96-112); CO2 (CARBON DIOXIDE) 23 MMOL/L (24-34); CREATININE 0.66 MG/DL (0.70-1.30); DIRECT BILIRUBIN 0.2 MG/DL (0.0-0.4); GFR AFRICAN AMERICAN 113 ML/MIN (>=60); GFR NON AFRICAN AMERICAN 97 ML/MIN (>=60); GLUCOSE, SERUM 145 MG/DL (60-99); INDIRECT BILIRUBIN(NOT ORDER) 0.3 MG/DL (0.1-0.9); PHOSPHORUS, SERUM 2.8 MG/DL (2.5-4.5); POTASSIUM, SERUM 4.3 MMOL/L (3.5-5.3); SGOT(AST) 29 U/L (5-40); SGPT(ALT) 29 U/L (5-65); SODIUM, SERUM 137 MMOL/L (135-148); TOTAL BILIRUBIN 0.5 MG/DL (0-1.2); TOTAL PROTEIN 5.3 G/DL (6.0-8.5)
[2017-04-04 06:05] LABS: MANUAL DIFF YES %
[2017-04-04 06:19] LABS: BAND NEUTROPHILS 47 %; IMMATURE GRANS ABSOLUTE (CALC) 0.33 10/3/uL (0.0-0.11); LYMPHOCYTES 7 %; LYMPHOCYTES ABSOLUTE (CALC) 0.33 10/3/uL (0.67-4.30); METAMYELOCYTES 7 %; MONOCYTES 3 %; MONOCYTES ABSOLUTE (CALC) 0.14 10/3/uL (0.21-1.20); PLATELET ESTIMATE ADQ (ADEQUATE); SEGMENTED NEUTROPHIL (0) 36 %; TOTAL NUCLEATED CELLS 100
[2017-04-05 06:32] LABS: HEMATOCRIT 29.4 % (40.0-51.0); HEMOGLOBIN 9.7 g/dL (13.6-17.8); MANUAL DIFF YES %; MEAN CORPUSCULAR HEMOGLOB 32.6 pg (26.0-34.0); MEAN CORPUSCULAR VOLUME 98.7 fL (80-100); MEAN PLATELET VOLUME 9.9 fL (9.2-13.0); PLATELET COUNT 314 10/3/uL (150-400); RBC DISTRIBUTION WIDTH 13.3 % (12.0-16.0); RED CELL COUNT 2.98 10/6/uL (4.7-6.1); WHITE BLOOD CELLS 4.6 10/3/uL (4.5-10.5)
[2017-04-05 06:48] LABS: ALBUMIN 1.8 G/DL (3.5-5.0); BUN (BLOOD UREA NITROGEN) 23 MG/DL (6-23); CALCIUM, SERUM 8.2 MG/DL (8.5-10.4); CHLORIDE, SERUM 107 MMOL/L (96-112); CO2 (CARBON DIOXIDE) 25 MMOL/L (24-34); CREATININE 0.55 MG/DL (0.70-1.30); DIRECT BILIRUBIN 0.2 MG/DL (0.0-0.4); GFR AFRICAN AMERICAN 122 ML/MIN (>=60); GFR NON AFRICAN AMERICAN 105 ML/MIN (>=60); GLUCOSE, SERUM 132 MG/DL (60-99); INDIRECT BILIRUBIN(NOT ORDER) 0.3 MG/DL (0.1-0.9); PHOSPHORUS, SERUM 2.4 MG/DL (2.5-4.5); POTASSIUM, SERUM 4.2 MMOL/L (3.5-5.3); SGOT(AST) 29 U/L (5-40); SGPT(ALT) 31 U/L (5-65); SODIUM, SERUM 137 MMOL/L (135-148); TOTAL BILIRUBIN 0.5 MG/DL (0-1.2); TOTAL PROTEIN 5.4 G/DL (6.0-8.5)
[2017-04-05 06:49] LABS: ALKALINE PHOSPHATASE 207 U/L (45-117)
[2017-04-05 06:58] LABS: BAND NEUTROPHILS 53 %; EOSINOPHILS 4 %; EOSINOPHILS ABSOLUTE (CALC) 0.18 10/3/uL (0.0-0.53); IMMATURE GRANS ABSOLUTE (CALC) 0.09 10/3/uL (0.0-0.11); LYMPHOCYTES 2 %; LYMPHOCYTES ABSOLUTE (CALC) 0.09 10/3/uL (0.67-4.30); METAMYELOCYTES 2 %; MONOCYTES 4 %; MONOCYTES ABSOLUTE (CALC) 0.18 10/3/uL (0.21-1.20); NEUTROPHILS ABSOLUTE (CALC) 4.05 10/3/uL (2.02-8.40); PLATELET ESTIMATE ADQ (ADEQUATE); SEGMENTED NEUTROPHIL (0) 35 %; TOTAL NUCLEATED CELLS 100
[2017-04-05 06:59] LABS: RBC MORPHOLOGY NORM (NORMAL)
[2017-04-06 06:02] LABS: BUN (BLOOD UREA NITROGEN) 23 MG/DL (6-23); CALCIUM, SERUM 8.1 MG/DL (8.5-10.4); CHLORIDE, SERUM 106 MMOL/L (96-112); CO2 (CARBON DIOXIDE) 25 MMOL/L (24-34); CREATININE 0.58 MG/DL (0.70-1.30); GFR AFRICAN AMERICAN 119 ML/MIN (>=60); GFR NON AFRICAN AMERICAN 103 ML/MIN (>=60); GLUCOSE, SERUM 133 MG/DL (60-99); PHOSPHORUS, SERUM 2.8 MG/DL (2.5-4.5); POTASSIUM, SERUM 4.2 MMOL/L (3.5-5.3); SODIUM, SERUM 136 MMOL/L (135-148)
[2017-04-07 05:49] LABS: BUN (BLOOD UREA NITROGEN) 22 MG/DL (6-23); CALCIUM, SERUM 8.1 MG/DL (8.5-10.4); CHLORIDE, SERUM 105 MMOL/L (96-112); CO2 (CARBON DIOXIDE) 24 MMOL/L (24-34); CREATININE 0.47 MG/DL (0.70-1.30); GFR AFRICAN AMERICAN 130 ML/MIN (>=60); GFR NON AFRICAN AMERICAN 112 ML/MIN (>=60); GLUCOSE, SERUM 156 MG/DL (60-99); POTASSIUM, SERUM 4.3 MMOL/L (3.5-5.3); PREALBUMIN 5.4 MG/DL (17.0-43.0); SODIUM, SERUM 136 MMOL/L (135-148)
[2017-04-08 05:48] LABS: BUN (BLOOD UREA NITROGEN) 23 MG/DL (6-23); CALCIUM, SERUM 8.4 MG/DL (8.5-10.4); CHLORIDE, SERUM 104 MMOL/L (96-112); CO2 (CARBON DIOXIDE) 24 MMOL/L (24-34); CREATININE 0.56 MG/DL (0.70-1.30); GFR AFRICAN AMERICAN 121 ML/MIN (>=60); GFR NON AFRICAN AMERICAN 104 ML/MIN (>=60); GLUCOSE, SERUM 145 MG/DL (60-99); PHOSPHORUS, SERUM 3.2 MG/DL (2.5-4.5); POTASSIUM, SERUM 4.3 MMOL/L (3.5-5.3); SODIUM, SERUM 137 MMOL/L (135-148)
[2017-04-08] MEDS ORDERED: NORCO1 TAB PO (11:20)
[2017-04-08] MEDS ORDERED: MIRALAX POWDER1 PKT PO (11:21)
[2017-04-24] MEDS ORDERED: ROXICODONE15 MG PO (16:41)
[2017-04-24] MEDS ORDERED: ZOL100 PO (16:42)
[2017-04-24] MEDS ORDERED: AUG875 PO (16:42)
[2017-05-26] MEDS ORDERED: NEUR300 PO (19:54)
[2017-05-26] MEDS ORDERED: COMP10B PO (19:55)
[2017-05-26] MEDS ORDERED: DEX4 PO (19:55)
[2017-05-26] MEDS ORDERED: CHEMOTHERAPY IV (19:56)
[2017-06-10] MEDS ORDERED: CONSTULOSE PO (12:25)
[2017-06-10] MEDS ORDERED: INSNOVR SC (12:29)
[2017-06-26] MEDS ORDERED: REM15 PO (14:43)
[2017-06-26] MEDS ORDERED: POTASSIUM OTC PO (14:45)
[2017-07-16] MEDS ORDERED: LOM PO (03:24)
[2017-07-16] MEDS ORDERED: DURICEF PO (03:25)
[2017-07-16] MEDS ORDERED: TRAZ50 PO (03:25)
[2017-07-16] MEDS ORDERED: KLOR-CON M1010 MEQ PO (03:26)
[2017-07-16] MEDS ORDERED: ZOL100 PO (03:27)
[2017-07-16] MEDS ORDERED: NEUR300 PO (03:27)
[2017-07-16] MEDS ORDERED: PROTONIX PO (03:27)
[2017-07-16] MEDS ORDERED: ATV.5 PO (03:27)
[2017-07-16] MEDS ORDERED: INSNOVR (03:28)
[2017-07-16] MEDS ORDERED: ROXICODONE15 MG PO (03:28)
[2017-07-16] MEDS ORDERED: COMP10B PO (03:28)
[2017-07-20] MEDS ORDERED: VANCOCIN HCL125 MG PO (13:14)
[2017-07-20] MEDS ORDERED: FLAG500TAB PO (13:15)
== END 2017-04-08 13:09 | disposition home health service (06) | DRG 393 ==
LOC: 4EA 21:03
PROVIDERS: Internal Medicine; Nurse Practitioner Adult Health; Surgery
PROC: BW201ZZ Computerized Tomography (CT Scan) of Abdomen using Low Osmolar Contrast (ICD-10-PCS; principal; 2017-03-24)
PROC: 0J983ZZ Drainage of Abdomen Subcutaneous Tissue and Fascia, Percutaneous Approach (ICD-10-PCS; 2017-03-25)
PROC: 02HV33Z Insertion of Infusion Device into Superior Vena Cava, Percutaneous Approach (ICD-10-PCS; 2017-03-26)
PROC: 4A02X4A Measurement of Cardiac Electrical Activity, Guidance, External Approach (ICD-10-PCS; 2017-03-26)
PROC: 0W9F30Z Drainage of Abdominal Wall with Drainage Device, Percutaneous Approach (ICD-10-PCS; 2017-03-26)
PROC: 3E0336Z Introduction of Nutritional Substance into Peripheral Vein, Percutaneous Approach (ICD-10-PCS; 2017-04-04)
DX: K94.12 Enterostomy infection (principal); J96.01 Acute respiratory failure with hypoxia; J69.0 Pneumonitis due to inhalation of food and vomit; E43 Unspecified severe protein-calorie malnutrition; C15.5 Malignant neoplasm of lower third of esophagus; L03.311 Cellulitis of abdominal wall; J90 Pleural effusion, not elsewhere classified; J98.11 Atelectasis; Y83.8 Other surgical procedures as the cause of abnormal reaction of the patient, or of later complication, without mention of misadventure at the time of the procedure; I10 Essential (primary) hypertension; E66.9 Obesity, unspecified
CPT/HCPCS: 10030; 36415; 36569; 49418; 49423; 49424; 71010; 74176; 75984; 76080; 77293; 77300; 77301; 77336; 77338; 77386; 80048; 80053; 80069; 80076; 81001; 82330; 82962; 83605; 83735; 84100; 84134; 84145; 84443; 84478; 85025; 85610; 85730; 86850; 86900; 86901; 87040; 87070; 87075; 87077; 87186; 87205; 93005; 93971; 94640; 97116-GP; 97162-GP; 99152; 99153; A9270-GY; C1729; C1751; C1769; C9113; G8978-CJ-GP; G8979-CH-GP; J1170; J1956; J2250; J2405; J2543; J3010; J3370; P9047; Q9967